=== PATIENT | female | born 1980 | race Caucasian/White ===

== ENCOUNTER 2021-12-15 23:46 | Emergency (ER) | payer BC, OTHER, SELFPAY ==
[2021-12-15 23:50] VITALS: BP 170/92; PULSE 106; RESP 16; TEMP 36.7; O2SAT 100
--- NOTE | 2021-12-16 00:04 | ED.FEMALEGU ---
HPI - Female Genitourinary General Chief complaint: Vaginal Bleeding Stated complaint: vaginal bleeding Time Seen by Provider: 12/15/21 23:53 Source: patient Mode of arrival: ambulatory Limitations: no limitations History of Present Illness HPI Narrative: Presents c/o vaginal bleeding that started this AM. States has been spotting for the past week but increased dramatically this AM. Some lower ABD cramping at times. Using 2 pads per hour currently. Reports that she and SO trying to get . Quit control pills last month. Denies other sx or c/o at this time. Review of Systems Review of Systems: CONSTITUTIONAL: Denies fever, chills, or sweats. EYES: Denies visual changes, redness, or discharge. ENT: Denies rhinorrhea, congestion, sore throat, or otalgia. CARDIOVASCULAR: Denies chest pain, palpitations, or edema. RESPIRATORY: Denies cough or dyspnea. GASTROINTESTINAL: Denies abdominal pain, nausea, vomiting, or diarrhea. GENITOURINARY: Vaginal bleeding. Denies dysuria or hematuria. SKIN: Denies rash or itching. MUSCULOSKELETAL: Denies back pain, joint pain, or myalgia. NEUROLOGIC: Denies headache, numbness, or weakness. PSYCHIATRIC: Denies anxiety or depression. Exam Narrative: GENERAL: Well-appearing, well-nourished, and in no acute distress. HEAD: Normocephalic, atraumatic. EYES: PERRLA and EOMI. ENT: Nares clear, no rhinorrhea or epistaxis. Mucous membranes moist. NECK: Supple. CHEST: Clear to auscultation. No respiratory distress. HEART: Regular rate and rhythm. No murmur heard. Normal peripheral pulses. ABDOMEN: Tender palpation suprapubic area. Otherwise, soft, nondistended, normal active bowel sounds. No flank tenderness. EXTREMITIES: Normal range of motion. No edema. SKIN: Warm, dry, no rash. NEURO: No focal deficits. Alert and oriented x3. PSYCH: Normal mood and affect. : General: Yes no CVA tenderness External Female Exam: normal external appearance Speculum Exam - Vagina: vaginal bleeding (No active bleeding noted. Exam otherwise unremakable. ) Speculum Exam - Cervix: Cervical os closed (No visible bleeding at this time. ) Other: Residual blood noted to vaginal vault but no visible active bleeding noted at this time. Course Course Emergency Course: Spoke with Dr. Garrido ([employer]) and would like for pt to follow up with him in the office [facility]. Will have pt call this AM for appt. Vital Signs Vital signs: Vital Signs Temperature 36.7 C 12/15/21 23:50 Pulse Rate 106 H 12/15/21 23:50 Respiratory Rate 16 12/15/21 23:50 Blood Pressure 170/92 H 12/15/21 23:50 Pulse Oximetry 100 12/15/21 23:50 Temperature 36.8 C 12/16/21 01:08 Pulse Rate 90 12/16/21 01:08 Respiratory Rate 16 12/16/21 01:08 Blood Pressure 157/77 H 12/16/21 01:08 Pulse Oximetry 100 12/16/21 01:08 MDM - Female Genitourinary Lab Data Result diagrams: 12/16/21 00:31 12/16/21 00:31 Labs: Lab Results 12/16/21 12/16/21 12/16/21 Range/Units 00:31 00:31 00:31 WBC 11.8 H (4.5-10.0) K/mm3 RBC 4.54 (4.2-5.4) M/mm3 Hgb 14.1 (12.0-15.0) g/dL Hct 42.9 (37.0-47.0) % MCV 94.5 (80-100) fl MCH 31.1 (26-34) pg MCHC 32.9 (32-36) g/dl RDW 13.4 (11.5-14.5) % Plt Count 394 H (150-375) k/mm3 MPV 9.3 (7.4-10.4) fl Immature Gran % (Auto) 0.3 (0-0.5) % Neut % (Auto) 69.3 (45.5-73.1) % Lymph % (Auto) 22.9 (18.3-44.2) % [place] % (Auto) 6.5 (2.6-8.5) % Eos % (Auto) 0.7 (0-4.4) % Baso % (Auto) 0.3 (0.2-1.2) % Lymph # (Auto) 2.69 (0.9-3.2) K/mm3 [place] # (Auto) 0.8 H (0.1-0.6) K/mm3 Eos # (Auto) 0.1 (0-0.3) K/mm3 Baso # (Auto) 0.0 (0.0-0.1) K/mm3 Abs Immat Gran (auto) 0.04 H (0.00-0.031) K/mm3 Absolute Neuts (auto) 8.1 H (1.3-6.7) K/mm3 Absolute Nucleated RBC 0.0 (0.0-0.012) K/mm3 Nucleated RBC % 0.0 (0.0-0.2) % PT 12.3 (11.1-14.7) Seconds INR
[2021-12-16 00:42] LABS: Basophils Percent Auto 0.3 % (0.2-1.2); Eosinophils Absolute Auto 0.1 K/mm3 (0-0.3); Eosinophils Percent Auto 0.7 % (0-4.4); Hematocrit 42.9 % (37.0-47.0); Hemoglobin 14.1 g/dL (12.0-15.0); Immature Granulocyte Absolute 0.04 K/mm3 (0.00-0.031); Immature Granulocyte Percent A 0.3 % (0-0.5); Lymphocytes Absolute Auto 2.69 K/mm3 (0.9-3.2); Lymphocytes Percent Auto 22.9 % (18.3-44.2); Mean Corpuscular HGB Conc 32.9 g/dl (32-36); Mean Corpuscular Hemoglobin 31.1 pg (26-34); Mean Corpuscular Volume 94.5 fl (80-100); Mean Platelet Volume 9.3 fl (7.4-10.4); Monocytes Absolute Auto 0.8 K/mm3 (0.1-0.6); Monocytes Percent Auto 6.5 % (2.6-8.5); Neutrophils Absolute Auto 8.1 K/mm3 (1.3-6.7); Neutrophils Percent Auto 69.3 % (45.5-73.1); Platelet Count Result 394 k/mm3 (150-375); Red Blood Count 4.54 M/mm3 (4.2-5.4); Red Cell Distribution Width 13.4 % (11.5-14.5); White Blood Count 11.8 K/mm3 (4.5-10.0)
[2021-12-16 00:53] LABS: Alanine Aminotransferase 21 U/L (6-35); Albumin Level 4.5 g/dL (3.5-5.1); Alkaline Phosphatase 88 U/L (38-126); Anion Gap 15 mmol/L (8-16); Aspartate Amino Transferase 23 U/L (14-36); Bilirubin,Total 0.3 mg/dL (0.2-1.3); Blood Urea Nitrogen 7 mg/dL (7-17); Calcium 8.8 mg/dL (8.4-10.2); Carbon Dioxide 24 mmol/L (22-30); Chloride 101 mmol/L (98-107); Estimated Glomerular Filt Rate > 60; Glucose 116 mg/dL (65-110); Partial Thromboplastin Time 29.4 SECONDS (22.3-36.8); Potassium 3.7 mmol/L (3.4-5.0); Prothrombin Time 12.3 Seconds (11.1-14.7); Sodium 140 mmol/L (137-145)
[2021-12-16 01:08] VITALS: BP 157/77; PULSE 90; RESP 16; TEMP 36.8; O2SAT 100
[2021-12-16 02:00] VITALS: BP 132/80; PULSE 82; RESP 16; TEMP 36.8; O2SAT 100
== END 2021-12-16 02:47 | disposition home or self-care (01) ==
PROVIDERS: Emergency Provider Nurse Practitioner
DX: O20.0 Threatened abortion (principal); Z3A.00 Weeks of gestation of pregnancy not specified
CPT/HCPCS: 36415; 80053; 84702; 85025; 85461; 85610; 85730; 86850; 86900; 86901; 99283

== ENCOUNTER 2021-12-19 11:14 | Outpatient (CLI) | payer BC, OTHER, SELFPAY | END 2021-12-19 11:15 | disposition home or self-care (01) | LOC: ANHLAB 11:16 | PROVIDERS: Visit Provider Student in an Organized Health Care Education/Training Program | DX: O03.9 Complete or unspecified spontaneous abortion without complication (principal); Z3A.00 Weeks of gestation of pregnancy not specified | CPT/HCPCS: 36415; 84702 ==

== ENCOUNTER 2022-12-18 10:50 | Emergency (ER) | payer BC, OTHER, SELFPAY ==
--- NOTE | 2022-12-18 10:58 | ED.FEMALEGU ---
HPI - Female Genitourinary General Chief complaint: Urogenital-Female Stated complaint: Test Time Seen by Provider: 12/18/22 10:56 Source: patient Mode of arrival: ambulatory Limitations: no limitations History of Present Illness HPI Narrative: Patient is a 42-year-old female who presents with at home positive test and is requesting a test here. States she was this time last year and had a miscarriage. Patient states she is not actively trying and but also not actively presenting . Last menstrual cycle was in October. Related Data Home Medications Medication Instructions Recorded Confirmed No Home Medications 12/19/21 12/19/21 Allergies Allergy/AdvReac Type Severity Reaction Status Date / Time No Known Allergies Allergy Verified 12/19/21 10:20 Review of Systems Review of Systems: All systems reviewed & are unremarkable except as noted in HPI and below Constitutional: Constitutional: Denies body ache(s), Denies chills, Denies fatigue, Denies fever(s), Denies headache(s), Denies malaise and Denies weakness Eyes: Eyes: Denies blurry vision, Denies irritation and Denies loss of vision ENT: Denies otalgia, Denies headache(s), Denies nasal discharge, Denies sinus pain and Denies sore throat Cardiovascular: Cardiovascular: Denies chest pain, Denies irregular heart rhythm and Denies dyspnea Respiratory: Respiratory: Denies dyspnea Gastrointestinal: Gastrointestinal: Denies abdominal pain, Denies melena, Denies hematochezia, Denies diarrhea, Denies nausea and Denies vomiting Musculoskeletal: Musculoskeletal: Denies back pain, Denies myalgias and Denies arthralgias Integumentary/Breasts: Skin/Breast: Denies pruritus and Denies rash Neurologic: Denies headache(s), Denies loss of vision and Denies weakness Psychiatric: Psychiatric: Reports no additional psychiatric complaints Endocrine: Endocrine: Denies fatigue PMFSH Family History Family History Grandparent Diabetes mellitus Hypertension Social History Social History (Updated 12/19/21 @ 10:22 by Elidia Falcon CMA) Smoking status: Current every day smoker Alcohol intake: current Alcohol use details: social Substance use: never Comments At time of signature, agree with nursing past medical, surgical, social and family history. There is no relevant family history pertinent to the presenting complaint. Exam Const: General: cooperative, healthy appearing, comfortable, no acute distress and well nourished Nutritional Appearance: well nourished Orientation/consciousness: patient oriented x3 Limitations: no limitations HENMT: Head: normal to inspection, normocephalic and atraumatic Ears: hearing grossly normal bilaterally and external ears normal Face/Nose/Sinus: Normal external nose present, normal facial exam and face symmetric Face and sinus: normal facial exam and face symmetric Mouth: Yes lip normal Eyes: General: appearance normal, both eyes and all related structures Alignment and Position: alignment normal and position normal Periorbital: periorbital findings normal Eyelids: eyelids normal Pupils: Equal, round and reactive pupils present EOM: EOMs intact bilaterally Neck: Neck: normal visual inspection, full ROM and supple Chest: Chest palpation & inspection: normal inspection of the chest Resp: Effort & Inspection: normal respiratory effort and able to speak in complete sentences Auscultation: clear to auscultation bilaterally Cardio: Rate: regular rate Rhythm: regular rhythm Heart sounds: S1 normal heart sound present and S2 normal heart sound present GI: Inspection: normal to inspection Skin: General skin exam: normal color and no rashes or lesions noted Neuro: General: patient oriented x3 and moves all extremities Cranial nerves: Yes Equal, round and reactive pupils present Speech: normal speech Gait exam (Neuro):
[2022-12-18 11:17] VITALS: BP 145/88; PULSE 94; RESP 16; TEMP 37.1; O2SAT 100
== END 2022-12-18 12:02 | disposition home or self-care (01) ==
PROVIDERS: Emergency Provider Nurse Practitioner Family
DX: Z32.01 Encounter for pregnancy test, result positive (principal); O99.330 Smoking (tobacco) complicating pregnancy, unspecified trimester; Z3A.00 Weeks of gestation of pregnancy not specified
CPT/HCPCS: 81025; 99212; G0463

== ENCOUNTER 2023-01-01 09:30 | Emergency (ER) | payer BC, OTHER, SELFPAY ==
--- NOTE | ~2023-01-01 | US_ITS ---
EXAMINATION: US OB follow up DATE: 01/01/2023 13:15 INDICATION: Positive . Unknown gestational age. TECHNIQUE: Real-time transabdominal obstetric ultrasound. FINDINGS: No prior studies for comparison. There is a single living fetus in variable presentation. The placenta is maternal right without plac enta previa. cardiac activity and movement is noted with a heart rate of 148 beats per minute. T he amniotic fluid volume is subjectively normal. The following biometric data were obtained: BPD: 30mm corresponds to gestational age 15 weeks 4 days. Head circumference: 113mm corresponds to gestational age 15 weeks 4 days. Abdominal circumference: 91mm corresponds to gestational age 15 weeks 2 days. Femur length: 17mm corresponds to gestational age 14 weeks 6 days. Estimated weight: 116grams +/- 17grams.] IMPRESSION: 1. Single living intrauterine in variable presentation with an estimated gestational age o f 15 weeks 2 days by current ultrasound. 2. Normal placenta. Reviewed, dictated and finalized at location B. SECTION SUPERVISOR IMPRESSION: 1. Single living intrauterine in variable presentation with an estim ated gestational age of 15 weeks 2 days by current ultrasound. 2. Normal placenta.
[2023-01-01 09:35] VITALS: BP 156/92; PULSE 118; RESP 20; TEMP 36.8; O2SAT 99
--- NOTE | 2023-01-01 10:44 | ED.PREGNANCY ---
HPI - General Chief complaint: LIVE IN CAREGIVER Stated complaint: , needs ultrasound Time Seen by Provider: 01/01/23 09:53 Source: patient Mode of arrival: ambulatory Limitations: no limitations History of Present Illness HPI Narrative: patient is a 42-year-old female who presents the ED wanting ultrasound for . Patient reports her last normal menstrual cycle was in September of this year. She took several home tests in November which were positive. She was scheduled to follow-up with a provider at [facility] [place] today, but states they canceled her appointment when she arrived. She then prompted here for the ultrasound. She states she would like to know what is going on. She reports 1 previous which resulted in miscarriage last year. No living children. She denies any acute complaints. Denies abdominal pain or cramping, fevers, hematuria, vaginal bleeding. Related Data Allergies Allergy/AdvReac Type Severity Reaction Status Date / Time No Known Allergies Allergy Verified 01/01/23 09:39 Review of Systems Review of Systems: CONSTITUTIONAL: Denies fever, chills, or sweats. CARDIOVASCULAR: Denies chest pain. RESPIRATORY: Denies dyspnea. GASTROINTESTINAL: Denies abdominal pain, nausea, vomiting. GENITOURINARY: Denies vaginal bleeding, dysuria or hematuria. SKIN: Denies rash or itching. MUSCULOSKELETAL: Denies back pain, joint pain, or myalgia. All systems reviewed & are unremarkable except as noted in HPI and below PMFSH Family History Family History Grandparent Diabetes mellitus Hypertension Social History Social History Smoking status: Current every day smoker Alcohol intake: current Alcohol use details: social Substance use: never Exam Narrative: GENERAL: Well appearing, morbidly obese with BMI of 41.6, non-toxic, in no acute distress. HEAD: Normocephalic, atraumatic. NECK: Supple. No adenopathy, no masses. RESPIRATORY: Airway patent, respirations nonlabored. Clear to auscultation bilaterally, no rales, rhonchi, wheezing. CARDIOVASCULAR: Regular rate and rhythm without murmurs, rubs, or gallops. Peripheral pulses 2+ and equal bilaterally. ABDOMINAL: Soft, no significant tenderness throughout abdomen, nondistended, no hepatosplenomegaly. Normoactive BS. MUSCULOSKELETAL: Moves all extremities. Strength/ROM intact without gross deformities. SKIN: Warm, dry, normal color. No rashes. NEURO: A&O X3. Speech clear. Cranial nerves II-XII grossly intact. Steady gait. No ataxic movements. PSYCHIATRIC: Appropriate mood and affect. Normal interaction. Course Vital Signs Vital signs: Vital Signs Temperature 98.2 F 01/01/23 09:35 Pulse Rate 118 H 01/01/23 09:35 Respiratory Rate 01/01/23 09:35 Blood Pressure 156/92 H 01/01/23 09:35 Pulse Oximetry 99 01/01/23 09:35 Oxygen Delivery Room Air 01/01/23 09:35 Temperature 98.2 F 01/01/23 09:35 Pulse Rate 118 H 01/01/23 09:35 Respiratory Rate 01/01/23 09:35 Blood Pressure 156/92 H 01/01/23 09:35 Pulse Oximetry 99 01/01/23 09:35 Oxygen Delivery Room Air 01/01/23 09:35 MDM - OB/Uterine Contractions MDM Narrative Medical decision making narrative: Patient presented to ED currently , LNMP in September, unknown gestation. . denying any acute complaints. Denying abdominal pain or vaginal bleeding. Vitals stable. Exam unremarkable. No lower abdominal tenderness. Basic laboratory studies w/o significant abnormalities. Beta quant nearly 42,000. UA with signs of infection with positive nitrite, 4+ urine bacteria. Sent for culture. Will Tx given status. Ultrasound obtained today to rule out ectopic given high risk/ gestational age. Showing live IUP, good FHT, at 15 weeks, 2 days. Patient updated on lab and imaging f
[2023-01-01 11:16] LABS: Basophils Percent Auto 0.2 % (0.2-1.2); Eosinophils Absolute Auto 0.2 K/mm3 (0-0.3); Eosinophils Percent Auto 1.5 % (0-4.4); Immature Granulocyte Absolute 0.04 K/mm3 (0.00-0.031); Immature Granulocyte Percent A 0.3 % (0-0.5); Lymphocytes Absolute Auto 2.58 K/mm3 (0.9-3.2); Lymphocytes Percent Auto 22.3 % (18.3-44.2); Mean Corpuscular HGB Conc 32.5 g/dl (32-36); Mean Corpuscular Hemoglobin 30.7 pg (26-34); Mean Corpuscular Volume 94.3 fl (80-100); Mean Platelet Volume 9.2 fl (7.4-10.4); Monocytes Absolute Auto 0.6 K/mm3 (0.1-0.6); Monocytes Percent Auto 5.3 % (2.6-8.5); Neutrophils Absolute Auto 8.2 K/mm3 (1.3-6.7); Neutrophils Percent Auto 70.4 % (45.5-73.1); Platelet Count Result 399 k/mm3 (150-375); Red Blood Count 4.24 M/mm3 (4.2-5.4); Red Cell Distribution Width 13.5 % (11.5-14.5); White Blood Count 11.6 K/mm3 (4.5-10.0)
[2023-01-01 11:30] LABS: Appearance Urine Cloudy (Clear); Bacteria Urine 4+ /hpf; Bilirubin Urine Negative (Negative); Blood Urine Negative (Negative); Color Urine Yellow (Yellow); Glucose Urine UA Negative (Negative); Ketones Urine Trace mg/dL (Negative); Leukocyte Esterase Ur 1+ LEU/UL (Negative); Need Manual Microscopic Reviewed; Nitrate Urine Positive (Negative); Non Pathogenic Casts 0-2; Protein Urine Negative (Negative); Specific Grav Ur 1.013 (1.001-1.035); Squamous Epithelial Cell Urine Few /hpf (Few); Urobilinogen Urine 0.2 mg/dL (<2.0); WBC Urine 0-5 /hpf
[2023-01-01 11:31] LABS: Add Urine Microscopic? YES
[2023-01-01 13:41] VITALS: BP 128/78; PULSE 85; RESP 20; O2SAT 98
== END 2023-01-01 13:43 | disposition home or self-care (01) ==
PROVIDERS: Emergency Provider Physician Assistant
DX: O23.42 Unspecified infection of urinary tract in pregnancy, second trimester (principal); Z3A.15 15 weeks gestation of pregnancy
CPT/HCPCS: 36415; 76816; 81001; 81025; 84702; 85025; 85461; 86850; 86900; 86901; 99284

== ENCOUNTER 2023-05-16 15:43 | Outpatient (CLI) | payer BC, OTHER, SELFPAY ==
[2023-05-16] VITALS (31 sets, daily range): BP systolic 94–161; BP diastolic 61–101; PULSE 89–106; O2SAT 95–99; BMI 47.4
--- NOTE | 2023-05-16 16:14 | PM.OBTRLD ---
OB - Triage/Final Diagnosis Visit Information Reason for evaluation: other (htn) Comments/Additional reasons for admission: I have assessed the risk for this patient, Pepper Ling, and determined that she would benefit from observation care. Evaluation Vital signs: Vital Signs - 24 hr 05/16/23 16:06 05/16/23 16:11 Pulse Rate 102 H 105 H Blood Pressure 161/101 H 149/80 H
[2023-05-16 16:42] LABS: Basophils Percent Auto 0.3 % (0.2-1.2); Eosinophils Absolute Auto 0.3 K/mm3 (0-0.3); Eosinophils Percent Auto 2.2 % (0-4.4); Hematocrit 36.7 % (37.0-47.0); Hemoglobin 12.3 g/dL (12.0-15.0); Immature Granulocyte Absolute 0.16 K/mm3 (0.00-0.031); Lymphocytes Absolute Auto 3.27 K/mm3 (0.9-3.2); Lymphocytes Percent Auto 21.4 % (18.3-44.2); Mean Corpuscular HGB Conc 33.5 g/dl (32-36); Mean Corpuscular Hemoglobin 30.3 pg (26-34); Mean Corpuscular Volume 90.4 fl (80-100); Mean Platelet Volume 9.7 fl (7.4-10.4); Monocytes Absolute Auto 1.2 K/mm3 (0.1-0.6); Monocytes Percent Auto 7.6 % (2.6-8.5); Neutrophils Absolute Auto 10.3 K/mm3 (1.3-6.7); Neutrophils Percent Auto 67.5 % (45.5-73.1); Platelet Count Result 514 k/mm3 (150-375); Red Blood Count 4.06 M/mm3 (4.2-5.4); Red Cell Distribution Width 13.4 % (11.5-14.5); White Blood Count 15.3 K/mm3 (4.5-10.0)
[2023-05-16 16:52] LABS: Alanine Aminotransferase 25 U/L (6-35); Albumin Level 3.7 g/dL (3.5-5.1); Alkaline Phosphatase 161 U/L (38-126); Anion Gap 6 mmol/L (4-12); Aspartate Amino Transferase 25 U/L (14-36); Bilirubin,Total 0.3 mg/dL (0.2-1.3); Blood Urea Nitrogen 8 mg/dL (7-17); Calcium 9.3 mg/dL (8.4-10.2); Carbon Dioxide 21 mmol/L (22-30); Chloride 106 mmol/L (98-107); Estimated CRCL calculation 184 ml/min; Estimated Glomerular Filt Rate > 60; Glucose 90 mg/dL (65-110); Sodium 133 mmol/L (137-145); Uric Acid 3.6 mg/dL (2.5-7.5)
[2023-05-16 16:54] LABS: Appearance Urine Cloudy (Clear); Bacteria Urine 2+ /hpf; Bilirubin Urine Negative (Negative); Blood Urine Negative (Negative); Color Urine Yellow (Yellow); Glucose Urine UA Negative (Negative); Ketones Urine Negative (Negative); Leukocyte Esterase Ur 2+ LEU/UL (Negative); Need Manual Microscopic Reviewed; Nitrate Urine Negative (Negative); Non Pathogenic Casts 0-2; Protein Urine Negative (Negative); RBC Urine 0-2 /hpf (0-2); Squamous Epithelial Cell Urine Moderate /hpf (Few); Urobilinogen Urine 0.2 mg/dL (<2.0)
[2023-05-16 16:55] LABS: Add Urine Microscopic? YES
[2023-05-16 17:34] LABS: Creatinine Urine 47.4 mg/dL; Total Protein Urine Random 15 mg/dL; Ur Ttl Prot Creatinine Ratio 0.32 mg/mg (0-0.20)
== END 2023-05-16 18:32 | disposition home or self-care (01) ==
LOC: ANHOBOP 15:47 → ANHOBPP 15:48
PROVIDERS: Visit Provider Obstetrics & Gynecology
DX: O13.9 Gestational [pregnancy-induced] hypertension without significant proteinuria, unspecified trimester (principal); Z3A.00 Weeks of gestation of pregnancy not specified
CPT/HCPCS: 36415; 59025; 80053; 81001; 82570; 84156; 84550; 85025; 87086; 99199

== ENCOUNTER 2023-05-25 10:34 | Outpatient (NON) | payer BC, OTHER, SELFPAY ==
[2023-05-25 10:47] VITALS: BMI 47.4
[2023-05-25 11:01] LABS: Collection Time Urine 24 HOURS; Total Volume 24 Hour Urine 700 ml
[2023-05-25 11:10] LABS: Creatinine Urine 90.9 mg/dL; Patient Weight 267 Lbs; Total Protein Urine 24 Hr 63 mg/24hr (28-141); Total Protein Urine Random 9 mg/dL
[2023-05-29 17:10] LABS: Creatinine Clearance Urine 87.7 ml/min (75-125); Serum Creat 0.4
== END 2023-05-25 10:35 | disposition home or self-care (01) ==
LOC: ANHOBOP 10:43
PROVIDERS: Visit Provider Obstetrics & Gynecology
DX: Z34.90 Encounter for supervision of normal pregnancy, unspecified, unspecified trimester (principal); Z3A.00 Weeks of gestation of pregnancy not specified
CPT/HCPCS: 81050; 82575; 84156

== ENCOUNTER 2023-05-28 11:08 | Outpatient (CLI) | payer BC, OTHER, SELFPAY ==
[2023-05-28 12:04] LABS: Alanine Aminotransferase 20 U/L (6-35); Albumin Level 3.7 g/dL (3.5-5.1); Alkaline Phosphatase 160 U/L (38-126); Anion Gap 7 mmol/L (4-12); Aspartate Amino Transferase 22 U/L (14-36); Bilirubin,Total 0.3 mg/dL (0.2-1.3); Blood Urea Nitrogen 6 mg/dL (7-17); Calcium 9.1 mg/dL (8.4-10.2); Carbon Dioxide 20 mmol/L (22-30); Chloride 108 mmol/L (98-107); Estimated Glomerular Filt Rate > 60; Glucose 95 mg/dL (65-110); Sodium 135 mmol/L (137-145)
== END 2023-05-28 11:09 | disposition home or self-care (01) ==
LOC: ANHOBOP 11:14
PROVIDERS: Visit Provider Obstetrics & Gynecology
DX: O13.9 Gestational [pregnancy-induced] hypertension without significant proteinuria, unspecified trimester (principal); Z3A.00 Weeks of gestation of pregnancy not specified
CPT/HCPCS: 36415; 80053

== ENCOUNTER 2023-06-17 11:04 | Outpatient (CLI) | payer BC, OTHER, SELFPAY ==
[2023-06-17 11:52] VITALS: BP 126/85; PULSE 89
== END 2023-06-17 11:54 | disposition home or self-care (01) ==
LOC: ANHOBOP 11:48 → ANHLDR 11:48
PROVIDERS: Visit Provider Obstetrics & Gynecology Gynecology
DX: O42.90 Premature rupture of membranes, unspecified as to length of time between rupture and onset of labor, unspecified weeks of gestation (principal); Z3A.00 Weeks of gestation of pregnancy not specified
CPT/HCPCS: 59025; 84112; 99199

== ENCOUNTER 2023-06-20 15:51 | Inpatient (IN) | payer BC, OTHER, SELFPAY ==
[2023-06-20] VITALS (14 sets, daily range): BP systolic 125–145; BP diastolic 58–91; PULSE 81–119; RESP 18; TEMP 36.2–36.6; BMI 48.8
--- NOTE | 2023-06-20 16:21 | LDADM ---
This patient, Pepper Ling, was admitted to Labor/Delivery/Recovery 105 on 06/20/23 at 15:51. Plans for labor, pain management and were discussed with patient. Patient/family oriented to hospital policies and general routines including ID bracelet, bed and alarms, visiting hours, pain management, procedures, bathroom and other care routines, personal items, smoking policy, room service/diet and guest tray routines, infant security routines, and visiting hours. Patient/Family are encouraged to report perceived risks to care and to ask questions if they do not understand what they are told or what they should do. See OBIX for further documentation.
[2023-06-20 16:36] LABS: Basophils Percent Auto 0.1 % (0.2-1.2); Eosinophils Absolute Auto 0.1 K/mm3 (0-0.3); Eosinophils Percent Auto 0.8 % (0-4.4); Hematocrit 37.4 % (37.0-47.0); Immature Granulocyte Percent A 0.6 % (0-0.5); Lymphocytes Absolute Auto 3.07 K/mm3 (0.9-3.2); Mean Corpuscular HGB Conc 32.1 g/dl (32-36); Mean Corpuscular Hemoglobin 28.6 pg (26-34); Mean Corpuscular Volume 89.3 fl (80-100); Mean Platelet Volume 10.2 fl (7.4-10.4); Monocytes Percent Auto 6.1 % (2.6-8.5); Neutrophils Absolute Auto 11.8 K/mm3 (1.3-6.7); Neutrophils Percent Auto 73.4 % (45.5-73.1); Platelet Count Result 512 k/mm3 (150-375); Red Blood Count 4.19 M/mm3 (4.2-5.4); Red Cell Distribution Width 14.6 % (11.5-14.5); White Blood Count 16.1 K/mm3 (4.5-10.0)
[2023-06-20 16:57] LABS: Uric Acid 4.6 mg/dL (2.5-7.5)
[2023-06-20] MEDS: DINOPROSTONE 10 MG VAG INSERT VAGINAL (17:06)
[2023-06-20 17:08] LABS: Alanine Aminotransferase 19 U/L (6-35); Albumin Level 3.7 g/dL (3.5-5.1); Alkaline Phosphatase 184 U/L (38-126); Anion Gap 8 mmol/L (4-12); Aspartate Amino Transferase 23 U/L (14-36); Bilirubin,Total 0.2 mg/dL (0.2-1.3); Blood Urea Nitrogen 7 mg/dL (7-17); Calcium 9.4 mg/dL (8.4-10.2); Carbon Dioxide 20 mmol/L (22-30); Chloride 107 mmol/L (98-107); Estimated CRCL calculation 152 ml/min; Estimated Glomerular Filt Rate > 60; Glucose 127 mg/dL (65-110); Potassium 4.1 mmol/L (3.4-5.0); Sodium 135 mmol/L (137-145)
[2023-06-21] VITALS (325 sets, daily range): BP systolic 70–160; BP diastolic 42–120; PULSE 60–120; TEMP 36.3–36.8; O2SAT 93–100
[2023-06-21] MEDS: fentaNYL CITRATE INJ (*CRX) 100 MCG/2 ML VIAL 50 MCG IV PUSH ×2 (03:53→09:39)
[2023-06-21] MEDS: LACTATED RINGERS 1,000 ML 125 ML IV CONT ×4 (05:15→19:42)
[2023-06-21] MEDS: OXYTOCIN 30 UNITS/NS 500 ML 30 UNITS/500 ML BAG IV CONT (05:15)
--- NOTE | 2023-06-21 06:21 | PM.IMHP ---
H&P: HPI History of Present Illness Date/Time: 06/21/23 06:21 Chief Complaint: Gestational hypertension Narrative: 43-year-old 2 para 0 whose last menstrual period was 09/17/2022, EDC is 06/23/2023, presents at 39+ weeks gestation for induction of labor secondary to elevated blood pressure. Her had been complicated prior to the. PH labs were normal and she received Cervidil last night. She is negative for group B strep PMFSH Family History Family History Grandparent Diabetes mellitus Hypertension Social History Social History Smoking status: Current every day smoker Tobacco type: cigarettes Second hand tobacco smoke exposure: Yes Additional smoking assessment comments: varies per day Alcohol intake: current Alcohol use details: social Substance use: never Do You Feel Safe in your Home?: Yes Lack of Transportation: No Lack of Food: Never True Current Housing: I Have Housing Concerned About Future Housing: No Difficulty Paying Gas/Electric Bills: No Difficulty Paying for Meds: No Currently Unemployed: No Education: Associate Degree Difficulty w/ Childcare or Family Care: No Spiritual care concerns: No Meds Home Medications and Allergies Home Medications Medication Instructions Recorded Confirmed Type vitamin no.167-folic acid 1 tablet PO DAILY 05/16/23 06/20/23 History 400 mcg-dha 25 mg chewable tablet (One-A-Day ) Allergies Allergy/AdvReac Type Severity Reaction Status Date / Time No Known Allergies Allergy Verified 01/01/23 09:39 Vital Signs Vital Signs - 24 hr 06/20/23 16:21 06/20/23 16:45 06/20/23 17:04 Temperature 97.8 F Pulse Rate 95 Respiratory Rate 18 Blood Pressure 136/81 Pulse Oximetry Oxygen Delivery Room Air 06/20/23 18:45 06/20/23 19:00 06/20/23 19:30 Temperature Pulse Rate 87 85 91 Respiratory Rate Blood Pressure 131/74 135/64 138/77 Pulse Oximetry Oxygen Delivery 06/20/23 20:00 06/20/23 20:30 06/20/23 21:07 Temperature Pulse Rate 103 H 119 H 91 Respiratory Rate Blood Pressure 137/80 145/91 H 125/72 Pulse Oximetry Oxygen Delivery 06/20/23 21:30 06/20/23 22:00 06/20/23 22:30 Temperature Pulse Rate 90 89 84 Respiratory Rate Blood Pressure 129/75 132/71 132/61 Pulse Oximetry Oxygen Delivery 06/20/23 23:00 06/20/23 23:31 06/20/23 23:41 Temperature 97.1 F L Pulse Rate 81 96 Respiratory Rate 18 Blood Pressure 132/79 129/58 L Pulse Oximetry Oxygen Delivery 06/21/23 00:00 06/21/23 00:15 06/21/23 00:30 Temperature Pulse Rate 73 85 91 Respiratory Rate Blood Pressure 135/120 H 134/76 125/73 Pulse Oximetry Oxygen Delivery 06/21/23 00:45 06/21/23 01:00 06/21/23 01:15 Temperature Pulse Rate 87 105 H 86 Respiratory Rate Blood Pressure 129/67 156/84 H 146/86 H Pulse Oximetry Oxygen Delivery 06/21/23 01:30 06/21/23 01:45 06/21/23 02:00 Temperature Pulse Rate 92 85 85 Respiratory Rate Blood Pressure 133/82 110/67 125/70 Pulse Oximetry Oxygen Delivery 06/21/23 02:16 06/21/23 02:30 06/21/23 03:00 Temperature Pulse Rate 88 91 96 Respiratory Rate Blood Pressure 129/62 120/69 160/113 H Pulse Oximetry Oxygen Delivery 06/21/23 03:29 06/21/23 03:31 06/21/23 03:56 Temperature Pulse Rate 83 87 Respiratory Rate Blood Pressure 132/81 124/65 Pulse Oximetry 94 Oxygen Delivery 06/21/23 04:00 06/21/23 04:01 06/21/23 04:06 Temperature Pulse Rate 79 Respiratory Rate Blood Pressure 124/56 L Pulse Oximetry 94 94 Oxygen Delivery 06/21/23 04:11 06/21/23 04:16 06/21/23 04:21 Temperature Pulse Rate Respiratory Rate Blood Pressure Pulse Oximetry 94 94 93 Oxygen Delivery
--- NOTE | 2023-06-21 08:05 | PM.OBPNLAB ---
Pain Control Date/time seen: 06/21/23 08:05 Pain control: tolerating well Pelvic Exam Dilation (cm): 2 Effacement (%): 50 station: -2 Amniotic membrane status: Ruptured Contractions Monitor mode: Internal
--- NOTE | 2023-06-21 09:27 | WPDANESEPP ---
Anes - Eval Pre Procedure Procedure: Labor epidural Date/Time: 06/21/23 09:27 Surgeon: John Anton Preop Diagnosis: Pain during labor Pre Op Diagnosis: iol Patient Data Age: 43 Gender: F Height: 1.6 m Weight: 125 kg Last Vital Signs Temp 36.5 C 06/21/23 08:05 Pulse 85 06/21/23 09:15 Resp 18 06/20/23 23:41 BP 136/84 06/21/23 09:15 Pulse Ox 97 06/21/23 09:24 O2 Del Method Room Air 06/20/23 16:21 Allergies Allergy/AdvReac Type Severity Reaction Status Date / Time No Known Allergies Allergy Verified 01/01/23 09:39 Home Medications Medication Instructions Recorded Confirmed Type vitamin no.167-folic acid 1 tablet PO DAILY 05/16/23 06/20/23 History 400 mcg-dha 25 mg chewable tablet (One-A-Day ) Laboratory Tests 06/20/23 16:06 WBC 16.1 H K/mm3 (4.5-10.0) RBC 4.19 L M/mm3 (4.2-5.4) Hgb 12.0 g/dL (12.0-15.0) Hct 37.4 % (37.0-47.0) MCV 89.3 fl (80-100) MCH 28.6 pg (26-34) MCHC 32.1 g/dl (32-36) RDW 14.6 H % (11.5-14.5) Plt Count 512 H k/mm3 (150-375) MPV 10.2 fl (7.4-10.4) Immature Gran % (Auto) 0.6 H % (0-0.5) Neut % (Auto) 73.4 H % (45.5-73.1) Lymph % (Auto) 19.0 % (18.3-44.2) [place] % (Auto) 6.1 % (2.6-8.5) Eos % (Auto) 0.8 % (0-4.4) Baso % (Auto) 0.1 L % (0.2-1.2) Lymph # (Auto) 3.07 K/mm3 (0.9-3.2) [place] # (Auto) 1.0 H K/mm3 (0.1-0.6) Eos # (Auto) 0.1 K/mm3 (0-0.3) Baso # (Auto) 0.0 K/mm3 (0.0-0.1) Abs Immat Gran (auto) 0.10 H K/mm3 (0.00-0.031) Absolute Neuts (auto) 11.8 H K/mm3 (1.3-6.7) Absolute Nucleated RBC 0.000 K/mm3 (0.0-0.012) Nucleated RBC % 0.0 % (0.0-0.2) Sodium 135 L mmol/L (137-145) Potassium 4.1 mmol/L (3.4-5.0) Chloride 107 mmol/L (98-107) Carbon Dioxide 20 L mmol/L (22-30) Anion Gap 8 mmol/L (4-12) BUN 7 mg/dL (7-17) Creatinine 0.50 L mg/dL (0.7-1.0) Estim Creat Clear Calc 152 ml/min Estimated GFR > 60 (59 - ) Glucose 127 H mg/dL (65-110) Uric Acid 4.6 mg/dL (2.5-7.5) Calcium 9.4 mg/dL (8.4-10.2) Total Bilirubin 0.2 mg/dL (0.2-1.3) AST 23 U/L (14-36) ALT 19 U/L (6-35) Alkaline Phosphatase 184 H U/L (38-126) Total Protein 7.0 g/dL (6.3-8.2) Albumin 3.7 g/dL (3.5-5.1) RPR Pending Blood Type O Positive Antibody Screen Negative Patient hx anesthesia problems: none Family hx anesthesia problems: none Results Review: All pre-operative results and documents have been reviewed as part of the pre-operative evaluation. [facility] Family History Family History Grandparent Diabetes mellitus Hypertension Social History Social History Smoking status: Current every day smoker Tobacco type: cigarettes Second hand tobacco smoke exposure: Yes Additional smoking assessment comments: varies per day Alcohol intake: current Alcohol use details: social Substance use: never Do You Feel Safe in your Home?: Yes Lack of Transportation: No Lack of Food: Never True Current Housing: I Have Housing Concerned About Future Housing: No Difficulty Paying Gas/Electric Bills: No Difficulty Paying for Meds: No Currently Unemployed: No Education: Associate Degree Difficulty w/ Childcare or Family Care: No Spiritual care concerns: No Exam Day of Procedure 06/21/23 09:27 Patient weight: morbidly obese Heart: regular rate and rhythm Lungs: clear to auscultation Airway: Mallampati scale class II Neurological: alert and oriented
--- NOTE | 2023-06-21 11:48 | PM.OBPNLAB ---
Pain Control Date/time seen: 06/21/23 11:48 Pain control: tolerating well and epidural Pelvic Exam Dilation (cm): 2 Effacement (%): 50 station: -2 Amniotic membrane status: Ruptured Contractions Monitor mode: Internal
[2023-06-21 13:20] LABS: Rapid Plasma Reagin Non-Reactive (NonReactive)
--- NOTE | 2023-06-21 16:16 | PM.OBPNLAB ---
Pain Control Date/time seen: 06/21/23 16:16 Pain control: tolerating well and epidural Pelvic Exam Dilation (cm): 5 Effacement (%): 70 station: -2 Amniotic membrane status: Ruptured Contractions Monitor mode: Internal
[2023-06-22] VITALS (103 sets, daily range): BP systolic 71–184; BP diastolic 36–158; PULSE 66–181; RESP 16–25; TEMP 36.3–37.2; O2SAT 92–100
[2023-06-22] MEDS: AMPICILLIN 2 GM/NS 100 ML 2 GM/100 ML BAG IVPB (02:00)
--- NOTE | 2023-06-22 02:19 | PM.OBPNLAB ---
Pain Control Date/time seen: 06/22/23 02:19 Pain control: tolerating well and epidural Pelvic Exam Dilation (cm): 8 Effacement (%): 90 station: -2 Amniotic membrane status: Ruptured Contractions Monitor mode: Internal
[2023-06-22] MEDS: SODIUM CHLORIDE 0.9% IV 300 ML 600 ML I-UTERINE (03:29)
[2023-06-22] MEDS: LACTATED RINGERS 1,000 ML 125 ML IV CONT (03:42)
--- NOTE | 2023-06-22 05:10 | PM.OBPNLAB ---
Pain Control Date/time seen: 06/22/23 05:10 Pain control: tolerating well and epidural Pelvic Exam Dilation (cm): 10 Effacement (%): 100 station: 0 Amniotic membrane status: Ruptured Contractions Monitor mode: Internal
--- NOTE | 2023-06-22 05:51 | PM.OBPNLAB ---
Pain Control Date/time seen: 06/22/23 05:51 Pain control: tolerating well and epidural Comments: Pushing but making no progress. This is an expected very large baby for the patient the section risks benefits reviewed in great detail. She and her partner agree and will proceed Pelvic Exam Dilation (cm): 10 Effacement (%): 100 station: 0 Amniotic membrane status: Ruptured Contractions Monitor mode: Internal
[2023-06-22] MEDS: FAMOTIDINE 20 MG/2 ML VIAL IV PUSH (06:00)
[2023-06-22] MEDS: ONDANSETRON INJ 4 MG/2 ML VIAL IV PUSH (06:00)
--- NOTE | 2023-06-22 06:58 | W.PM.OBCSD ---
OB - Delivery Note Procedure Delivery date: 06/22/23 Pre-op diagnosis: Failed Induction of Labor, Gestational Hypertension and Macrosomia Post-op Diagnosis: Same Induction method: AROM Delivery augmentation: Pitocin Delivery monitor: External FHT and Internal Uterine Prior to decision for section, ACOG/SMFM labor guidelines were considered and discussed with the patient and staff. Decision made to proceed with the section.: Yes Procedure Performed: Primary Surgeon: Jonathan Atnon MD Anesthesia type: Epidural Description of Procedure/Findings: Patient got to [facility] to complete was unable to push the baby past the +1 station. She was offered low-transverse section taken back prepped and draped in sterile fashion placed under excellent epidural anesthesia the abdomen was entered in Pfannenstiel fashion progressive layers to the fascia. Fascia incised midline carried number out fashion bilaterally. Underlying muscles sharply dissected. Prep peritoneum below by Ladi clamps and by sharp dissection carried superiorly and inferiorly dome of the bladder. Bladder blade placed and bladder flap formed. A low-transverse incision made the head delivered in the DO position. Anterior posterior shoulder delivered spontaneously cord clamped was cut and passed off the table with a cry. Meconium was noted to be thick and I removed as much as possible with a suction bulb. The placenta was delivered intact manually after drying cord blood placenta delivered from the abdomen the with the uterus delivered and wrapped in a moist towel. After assuring no membranes or debris remained in the uterus, the uterus was closed continuous running locking 0 Vicryl from lateral edge to lateral edge. This followed by 2nd imbricating running locking 0 Vicryl from lateral edge to lateral edge. Hemostasis was assured. This fair amount a raw space there and this was then sprinkled with [place] term the uterus returned to the abdomen after noting the ovaries and tubes be normal. The laps removed and accounted for. The fascia closed with continuous running 0 Vicryl from lateral edge to midline bilaterally. Irrigation subcutaneous layer the skin closed with 4 Monocryl blood loss by QBL was 680cc. All sponge, needle, instrument counts were correct. There were no immediate complications Estimated Blood Loss: 680 Drains: No Packing: No Pathology: None sent Complications: No immediate complications Condition: Stable Disposition: Floor [place] Baby Date of : 06/22/23 Time of : 06:33 Weeks of gestation at delivery: 39 gender: Female presentation: vertex position: Right Occiput Anterior Placenta delivery description: Manual Removal Cord Vessel Description: 3 Vessels
--- NOTE | 2023-06-22 07:01 | P.DS_ITS ---
DS: Admitting Diagnosis Discharge Date 06/24/2023 Admitting Diagnosis gestational hypertension at term DS: Discharge Diagnosis Discharge Diagnosis (1) Gestational hypertension: Code(s): O13.9 - Gestational [-induced] hypertension without significant proteinuria, unspecified trimester Status: Acute (2) Term : Code(s): Z34.90 - Encounter for supervision of normal , unspecified, unspecified trimester Status: Acute DS: Summary Hospital Course Reason for hospitalization: patient was admitted on 06/20/2023 for induction of labor secondary to elevated blood pressures . she had Cervidil placed that evening with Pitocin in the morning progressed through out the day into the capacity planning engineer hours to completely dilated. She pushed and was not able to unable to move to completely dilated. Hospital Course: Patient underwent low-transverse section on the capacity planning engineer of . Her hospital course unremarkable thereafter. She remained afebrile. She was up, voiding without difficulty, ambulating, eating a regular diet generally without complaints. Time Spent with Patient Time attestation: Total time spent providing and/or coordinating discharge services: Exam Const: General: cooperative, healthy appearing and comfortable Nutritional Appearance: obese Orientation/consciousness: oriented to person, oriented to place and oriented to time HENMT: Head: normal to inspection Resp: Effort & Inspection: normal respiratory effort Cardio: Rate: regular rate Rhythm: regular rhythm Heart sounds: S1 normal heart sound present and S2 normal heart sound present GI: Inspection: normal to inspection and incision ( wound is clean dry and intact) DS: Data Data Completed and Pending Labs on day of discharge: Labs from last 24 hours 06/20/23 16:06 RPR Non-reactive Discharge Plan Discharge Attending physician on discharge: Jonathan Steve Discharging Clinician: Jonathan Steve Patient Disposition: Home, Self-Care Activity: may shower, may drive after 2 weeks and pelvic rest Diet: heart healthy Wound Care Instructions: follow printed instructions Patient Instructions: Antibiotic Form Stand Alone Forms: General Discharge Information Follow-up/Referrals: Jonathan Steve MD [Physician] - Discharge Medications: New hydrocodone-acetaminophen 5-325 mg tablet 1 tablet PO Q4H PRN (Reason: pain) Qty: 30 0RF Continued One-A-Day 400 mcg- 25 mg Tablet,Chewable 1 tablet PO DAILY Date of admission: 06/20/23 15:51 Primary Care Provider: PHYSICIAN,DISH UP PERSON Admitting Provider: Jonathan Steve Attending physician on admission: Jonathan Steve Condition: Stable
[2023-06-22] MEDS: LIDOCAINE 5% PATCH 1 PATCH (07:55)
[2023-06-22] MEDS: ACETAMINOPHEN 500 MG TABLET 1000 MG PO (08:28)
[2023-06-22] MEDS: KETOROLAC 30 MG/ML VIAL (*BKC) IV PUSH (08:28)
[2023-06-22] MEDS: OXYTOCIN 30 UNITS/NS 500 ML 30 UNITS/500 ML BAG 125 UNITS (09:55)
--- NOTE | 2023-06-22 10:30 | OBPPTRN ---
Patient transferred to post room #286 via stretcher. Support person present. Oriented to unit, room, information board, rooming in, admission packet and security measures. Patient verbalizes understanding.
--- NOTE | 2023-06-22 16:30 | PC.NURSE ---
1555 - 1620 Breast pump provided due to separation and mother has a portable pump. Instructions given on cleaning, care, usage, that there should be no pain, pumping schedule for milk production, collection, and storage of human milk. Patient was assessed for correct placement, flange size (24mm at this time is working well with no pain), to pump for comfort and nipple stretching/stimulation for adequate milk production every 3 hours (8 times in 24 hours) 1-2 times at night. Suggested a 12-3-6-9 schedule. Mother voiced understanding of the education shared along with mom/baby guide and the pump measurement, flange fit handout for additional resource information. Reported to the Primary RN.
[2023-06-22] MEDS: SIMETHICONE 80 MG TAB.CHEW PO (16:32)
[2023-06-22] MEDS: ACETAMINOPHEN 325 MG TABLET 650 MG PO ×2 (16:32→23:09)
[2023-06-22] MEDS: DOCUSATE SODIUM 100 MG CAPSULE PO (16:32)
[2023-06-22] MEDS: KETOROLAC 15 MG/ML VIAL (*BKC) IV PUSH ×2 (16:33→23:09)
[2023-06-22] MEDS: DEXTROSE 5%/0.45% SOD CHL 1,000 ML 125 ML IV CONT (16:37)
[2023-06-23 04:00] VITALS: BP 108/72; PULSE 86; RESP 18; TEMP 36.6; O2SAT 97
[2023-06-23 05:02] LABS: Basophils Absolute Auto 0.1 K/mm3 (0.0-0.1); Basophils Percent Auto 0.3 % (0.2-1.2); Eosinophils Absolute Auto 0.1 K/mm3 (0-0.3); Eosinophils Percent Auto 0.4 % (0-4.4); Hematocrit 29.8 % (37.0-47.0); Hemoglobin 9.8 g/dL (12.0-15.0); Immature Granulocyte Absolute 0.21 K/mm3 (0.00-0.031); Immature Granulocyte Percent A 0.8 % (0-0.5); Lymphocytes Percent Auto 6.5 % (18.3-44.2); Mean Corpuscular HGB Conc 32.9 g/dl (32-36); Mean Corpuscular Hemoglobin 29.5 pg (26-34); Mean Corpuscular Volume 89.8 fl (80-100); Mean Platelet Volume 10.6 fl (7.4-10.4); Monocytes Absolute Auto 0.8 K/mm3 (0.1-0.6); Monocytes Percent Auto 3.4 % (2.6-8.5); Neutrophils Percent Auto 88.6 % (45.5-73.1); Platelet Count Result 393 k/mm3 (150-375); Red Blood Count 3.32 M/mm3 (4.2-5.4); Red Cell Distribution Width 14.8 % (11.5-14.5); White Blood Count 24.8 K/mm3 (4.5-10.0)
[2023-06-23 05:29] LABS: Anisocytosis 1+; Hypochromasia 1+; Platelet Estimate Slightly Increased (Adequate); Schistocytes None Seen
--- NOTE | 2023-06-23 05:58 | PM.OBPNVD ---
OB - PN: Subj Subjective Date/time seen: 06/23/23 05:58 Patient comments: no complaints and pain well controlled OB - PN: Obj Data Labs 06/23/23 04:17 06/20/23 16:06 Labs: Laboratory Results - last 24 hr 06/23/23 04:17 WBC 24.8 H RBC 3.32 L Hgb 9.8 L Hct 29.8 L MCV 89.8 MCH 29.5 MCHC 32.9 RDW 14.8 H Plt Count 393 H MPV 10.6 H Immature Gran % (Auto) 0.8 H Neut % (Auto) 88.6 H Lymph % (Auto) 6.5 L [place] % (Auto) 3.4 Eos % (Auto) 0.4 Baso % (Auto) 0.3 Lymph # (Auto) 1.60 [place] # (Auto) 0.8 H Eos # (Auto) 0.1 Baso # (Auto) 0.1 Abs Immat Gran (auto) 0.21 H Absolute Neuts (auto) 22.0 H Absolute Nucleated RBC 0.000 Nucleated RBC % 0.0 Platelet Estimate Slightly increased Hypochromasia 1+ Anisocytosis 1+ Schistocytes None seen OB - PN A/P Plan day: 1 Plan: routine care Comments: patient may have pass today to see baby Time Spent With Patient Time: Total time spent is greater than 50% in coordination of care (as documented) at patient's floor/unit and/or counseling patient: Time with patient: less than 15 minutes Exam Const: General: cooperative, healthy appearing and comfortable Resp: Effort & Inspection: normal respiratory effort Cardio: Rate: regular rate Rhythm: regular rhythm Heart sounds: S1 normal heart sound present and S2 normal heart sound present GI: Inspection: normal to inspection and incision ( wound clean dry and intact)
[2023-06-23] MEDS: KETOROLAC 15 MG/ML VIAL (*BKC) IV PUSH (06:57)
[2023-06-23] MEDS: ACETAMINOPHEN 325 MG TABLET 650 MG PO ×3 (06:57→21:51)
[2023-06-23] MEDS: SIMETHICONE 80 MG TAB.CHEW PO ×3 (08:23→19:33)
[2023-06-23] MEDS: DOCUSATE SODIUM 100 MG CAPSULE PO ×2 (08:23→15:33)
[2023-06-23] MEDS: MULTIVIT/MIN/PREN/FOL AC/IRON TABLET 1 TAB PO (08:23)
[2023-06-23] MEDS: POLYSACCHARIDE IRON COMPLEX 150 MG CAPSULE PO ×2 (08:23→15:33)
--- NOTE | 2023-06-23 09:30 | WPDANLDNPN2 ---
Anes-Prog Note L&D-Neuraxial Date/Time: 06/23/23 09:30 Neuraxial medications: epidural PF morphine Opiod-related complaints: none Patient feedback: Patient satisfied with post-operative pain management.
--- NOTE | 2023-06-23 09:31 | WPDANLDPN2 ---
Anes-Prog Note L&D Date/Time: 06/23/23 09:31 Comfortable throughout: labor, delivery and section Neuraxial method: epidural Epidural/Spinal procedure site: clean & non-tender Neuro status: Neuro function grossly intact. Cardiovascular status: normal Respiratory status: normal Airway patency: baseline Mental status: baseline Post-Op hydration status: normal Vital Signs: Last Vital Signs Temp 36.6 C 06/23/23 04:00 Pulse 86 06/23/23 04:00 Resp 18 06/23/23 04:00 BP 108/72 06/23/23 04:00 Pulse Ox 97 06/23/23 04:00 O2 Del Method Room Air 06/22/23 16:46 Pain score (VAS): 1 I/O: Intake & Output 06/22/23 06/23/23 06/23/23 23:59 07:59 15:59 Intake Total 480 Output Total 670 275 Balance -190 -275 Post-procedural complaints: none Patient feedback: Patient satisfied with anesthetic care.
--- NOTE | 2023-06-23 10:05 | PC.NURSE ---
Pt left on therapeutic pass with to [facility].
--- NOTE | 2023-06-23 11:33 | PC.NURSE ---
1005: D/C'd pt's IV d/t her leaving for therapeutic pass to [facility].
[2023-06-23 15:30] VITALS: BP 134/79; PULSE 98; RESP 18; TEMP 37.3
[2023-06-23] MEDS: IBUPROFEN 600 MG TABLET PO ×2 (15:33→21:52)
[2023-06-23] MEDS: LIDOCAINE 5% PATCH 1 PATCH TRANSDERM (15:34)
--- NOTE | 2023-06-23 16:48 | PC.NURSE ---
1525: Pt returned from therapeutic pass.
[2023-06-23] MEDS: HYDROcodone/acetaminophen (*CRX) 10-325 MG TABLET 1 TAB PO (19:33)
[2023-06-24] VITALS: BP 126/76
[2023-06-24 04:00] VITALS: BP 133/60
[2023-06-24] MEDS: IBUPROFEN 600 MG TABLET PO ×2 (04:26→10:30)
[2023-06-24] MEDS: ACETAMINOPHEN 325 MG TABLET 650 MG PO ×2 (04:26→10:30)
--- NOTE | 2023-06-24 07:57 | PM.OBPNVD ---
OB - PN: Subj Subjective Date/time seen: 06/24/23 07:57 Patient comments: no complaints and pain well controlled baby status: doing well OB - PN: Obj Data Labs 06/23/23 04:17 06/20/23 16:06 OB - PN A/P Plan day: 2 Plan: routine care, discharge home and follow up 6 weeks (4) Time Spent With Patient Time: Total time spent is greater than 50% in coordination of care (as documented) at patient's floor/unit and/or counseling patient: Time with patient: less than 15 minutes Exam Const: General: cooperative, healthy appearing and comfortable Orientation/consciousness: oriented to person, oriented to place and oriented to time Resp: Effort & Inspection: normal respiratory effort Cardio: Rate: regular rate Rhythm: regular rhythm Heart sounds: S1 normal heart sound present and S2 normal heart sound present GI: Inspection: normal to inspection and incision (cdi) Auscultation: normal bowel sounds
[2023-06-24 09:15] VITALS: BP 146/77; PULSE 88; RESP 18; TEMP 36.3; O2SAT 100
[2023-06-24] MEDS: MULTIVIT/MIN/PREN/FOL AC/IRON TABLET 1 TAB PO (09:20)
[2023-06-24] MEDS: SIMETHICONE 80 MG TAB.CHEW PO (09:20)
[2023-06-24] MEDS: POLYSACCHARIDE IRON COMPLEX 150 MG CAPSULE PO (09:21)
[2023-06-24] MEDS: DOCUSATE SODIUM 100 MG CAPSULE PO (09:21)
--- NOTE | 2023-06-24 10:36 | PC.NURSE ---
Patient viewed the discharge video Mother & Baby Care, The First Two Weeks . Patient was given the opportunity and encouraged to ask questions. Patient verbalized understanding of information shared and has been given the mother/baby guide for home reference.
[2023-06-26 08:44] VITALS: BP 129/76; PULSE 83; RESP 20; TEMP 36.5; O2SAT 99
== END 2023-06-24 11:10 | disposition home or self-care (01) | DRG 788 ==
LOC: ANHLDR 06-22 07:04 → ANHOB2 06-22 10:31
PROVIDERS: Admitting Provider Obstetrics & Gynecology; Visit Provider Obstetrics & Gynecology
PROC: 10D00Z1 Extraction of Products of Conception, Low, Open Approach (ICD-10-PCS; CPT 59514; principal; 2023-06-22 06:15)
DX: O13.4 Gestational [pregnancy-induced] hypertension without significant proteinuria, complicating childbirth (principal); Z37.0 Single live birth; Z3A.39 39 weeks gestation of pregnancy; O61.0 Failed medical induction of labor; O36.63X0 Maternal care for excessive fetal growth, third trimester, not applicable or unspecified; O42.02 Full-term premature rupture of membranes, onset of labor within 24 hours of rupture
CPT/HCPCS: 36415; 80053; 84550; 85025; 86592; 86850; 86900; 86901; A9270; J0290; J1885; J2274; J2405; J2590; J2795; J3010; J7030; J7120